=== PATIENT | female | born 1995 | race African-American/Black ===

== ENCOUNTER 2017-05-17 16:37 | Emergency (ER) | payer BC ==
--- NOTE | 2017-05-17 17:02 | PDOC ---
Rapid Medical Evaluation Time Seen by Provider: 05/17/17 17:00 Medical Evaluation: Allergies Allergy/AdvReac Type Severity Reaction Status Date / Time No Known Drug Allergies Allergy Unverified 01/04/13 15:26 05/17/17 17:00 I have performed a brief in person evaluation of this patient. The patient presents with chief complaint of : sent by her PMD for positive HIDA scan . GI: Dr.Maria Rocha Pertinent PE findings: stable non toxic no acute discomfort, no vomiting I have ordered the following: none The patient will proceed to the ER for further evaluation.
[2017-05-17 17:03] VITALS: TEMP 97.8; BMI 27.9
--- NOTE | 2017-05-17 18:11 | PDOC ---
History of Present Illness - General History Source: Patient, Parent(s) Exam Limitations: No Limitations - History of Present Illness Initial Comments: 05/17/17 18:53 The patient is a 21 year old female with a significant PMH of asthma, GERD, and bilateral knee replacements who presents to the emergency department with no complaints after being sent over by Dr. Rocha for evaluation of her gallbladder. The patient reports that she had a HIDA scan, which showed the patient has severe chronic cholecystitis. She reports that Dr. Rocha told her that she has acute gallbladder disease and gallstones and told her to go to the ED to be evaluated. The patient denies any complaints at presentation, but notes that she had some nausea and vomiting a few days ago. The patient denies chest pain, shortness of breath, headache and dizziness. Denies fever, chills, nausea, vomit, diarrhea and constipation. Denies dysuria, frequency, urgency and hematuria. Allergies: NKDA Past surgical history: Bilateral knee replacement. Oral surgeries. Social history: No reported cigarette, alcohol, or drug use. PCP: Dr. Marshall Certified Nurse Operating Room: Dr. Christine Rocha <Piyush Fajardo - Last Filed: 05/17/17 18:52> <Master Palomino - Last Filed: 05/18/17 16:54> - General Chief Complaint: Pain Stated Complaint: PCP SENT Time Seen by Provider: 05/17/17 17:00 Past History <Piyush Fajardo - Last Filed: 05/17/17 18:52> - Past Medical History Anemia: No Asthma: Yes Cancer: No Cardiac Disorders: No CVA: No COPD: No CHF: No DVT: No Dementia: No Diabetes: No GI Disorders: Yes (GB) Disorders: No HTN: No Hypercholesterolemia: No Liver Disease: No Seizures: No Thyroid Disease: No - Surgical History Abdominal Surgery: No Appendectomy: No Cardiac Surgery: No Cholecystectomy: No Lung Surgery: No Neurologic Surgery: No Orthopedic Surgery: Yes (left knee ligament repair) - Suicide/Smoking/Psychosocial Hx Smoking History: Never smoked Hx Alcohol Use: No Drug/Substance Use Hx: No Substance Use Type: None <Master Palomino - Last Filed: 05/18/17 16:54> - Past Medical History Allergies/Adverse Reactions: Allergies Allergy/AdvReac Type Severity Reaction Status Date / Time No Known Drug Allergies Allergy Unverified 05/17/17 17:03 Home Medications: Ambulatory Orders Albuterol Sulfate [Ventolin Hfa] 8 gm IH PRN 01/04/13 Ibuprofen 800 mg PO TID #30 tablet 05/17/17 Omeprazole 20 mg PO DAILY #30 capsule. 05/17/17 Ondansetron [Zofran *Odt*] 4 mg SL TID #30 od.tablet 05/17/17 Review of Systems - Review of Systems Able to Perform ROS?: Yes Comments:: 05/17/17 18:53 GENERAL/CONSTITUTIONAL: No fever or chills. No weakness. HEAD, EYES, EARS, NOSE AND THROAT: No change in vision. No ear pain or discharge. No sore throat. CARDIOVASCULAR: No chest pain or shortness of breath. RESPIRATORY: No cough, wheezing, or hemoptysis. GASTROINTESTINAL: No nausea, vomiting, diarrhea or constipation. GENITOURINARY: No dysuria, frequency, or change in urination. MUSCULOSKELETAL: No joint or muscle swelling or pain. No neck or back pain. SKIN: No rash NEUROLOGIC: No headache, vertigo, loss of consciousness, or change in strength/ sensation. ENDOCRINE: No increased thirst. No abnormal weight change. HEMATOLOGIC/LYMPHATIC: No anemia, easy bleeding, or history of blood clots. ALLERGIC/IMMUNOLOGIC: No hives or skin allergy. <Piyush Fajardo - Last Filed: 05/17/17 18:52> *Physical Exam - Vital Signs Last Vital Signs Temp Pulse Resp BP Pulse Ox 97.8 F 75 20 121/69 100 05/17/17 17:00 05/17/17 17:00 05/17/17 17:00 05/17/17 17:00 05/17/17 17:00 - Physical Exam Comments: 05/17/17 18:54 GENERAL: Awake, alert, and fully oriented, in no acute distress HEAD: No signs of trauma EYES: PERRLA, EOMI, sclera anicteric, conjunctiva clear ENT: Auricles normal inspection, hearing grossly normal, nares patent, oropharynx clear without exudates. Moist mucosa NECK: Normal ROM, supple, no lymphadenopathy, JVD, or masses LUNGS: Breath sounds equal, clear to auscultation bilaterally. No wheezes, and no crackles HEART: Regular rate and rhythm, normal S1 and S2, no murmurs, rubs or gallops ABDOMEN: Soft, nontender, normoactive bowel sounds. No guarding, no rebound. No masses EXTREMITIES: Normal range of motion, no edema. No clubbing or cyanosis. No cords, erythema, or tenderness NEUROLOGICAL: Cranial nerves II through XII grossly intact. Normal speech, normal gait SKIN: Warm, Dry, normal turgor, no rashes or lesions noted. <Piyush Fajardo - Last Filed: 05/17/17 18:52> - Vital Signs Last Vital Signs Temp Pulse Resp BP Pulse Ox 97.8 F 75 20 121/69 100 05/17/17 17:00 05/17/17 17:00 05/17/17 17:00 05/17/17 17:00 05/17/17 17:00 <Master Palomino - Last Filed: 05/18/17 16:54> ED Treatment Course - LABORATORY CBC & Chemistry Diagram: 05/17/17 18:24 05/17/17 18:24 - ADDITIONAL ORDERS Additional order review: Laboratory Results 05/17/17 17:35 Urine HCG, Qual Negative 05/17/17 18:24 RBC 4.33 MCV 86.0 MCHC 32.0 RDW 13.3 MPV 7.7 Neutrophils % 50.9 Lymphocytes % 38.2 Monocytes % 8.9 Eosinophils % 1.6 Basophils % 0.4 <Piyush Fajardo - Last Filed: 05/17/17 18:52> - LABORATORY CBC & Chemistry Diagram: 05/17/17 18:24 05/17/17 18:24 - ADDITIONAL ORDERS Additional order review: Laboratory Results 05/17/17 17:35 Urine HCG, Qual Negative <Master Palomino - Last Filed: 05/18/17 16:54> *DC/Admit/Observation/Transfer - Attestations Scribe Attestion: 05/17/17 18:54 Documentation prepared by Piyush Fajardo, acting as medical sales representative for Master Palomino DO. <Piyush Fajardo - Last Filed: 05/17/17 18:52> - Attestations Physician Attestion: 05/17/17 18:10 I, Dr. Master Palomino, attest that this document has been prepared under my direction and personally reviewed by me in its entirety. I further attest, that it accurately reflects all work, treatment, procedures and medical decision -making performed by me. <Master Palomino - Last Filed: 05/18/17 16:54> Diagnosis at time of Disposition: Cholelithiases Qualifiers: Cholelithiasis location: gallbladder Cholecystitis presence: without cholecystitis Biliary obstruction: without biliary obstruction Qualified Code(s) : K80.20 - Calculus of gallbladder without cholecystitis without obstruction - Discharge Dispostion Disposition: HOME Condition at time of disposition: Stable - Prescriptions Prescriptions: Ibuprofen 800 mg PO TID #30 tablet Omeprazole 20 mg PO DAILY #30 capsule. Ondansetron [Zofran *Odt*] 4 mg SL TID #30 od.tablet - Referrals Referrals: Franco Sal MD [Staff Physician] - Rachel Marshall MD [Primary Care Provider] - - Patient Instructions Printed Discharge Instructions: DI for Gallstones - Post Discharge Activity
[2017-05-17 18:44] LABS: BASO % 0.4 % (0-2.0); EOS % 1.6 % (0-4.5); MCH 27.5 pg (25.7-33.7); MEAN PLT VOLUME 7.7 fl (7.5-11.1); NEUT % 50.9 % (42.8-82.8); PLATELET COUNT 311 K/MM3 (134-434); RDW 13.3 % (11.6-15.6); WHITE BLOOD COUNT 7.8 K/mm3 (4.0-10.0)
[2017-05-17 19:07] LABS: ALBUMIN 3.7 g/dl (3.4-5.0); ALK PHOS 65 U/L (45-117); ANION GAP 7 (8-16); BILIRUBIN,TOTAL 0.4 mg/dL (0.2-1.0); CALCIUM 8.9 mg/dL (8.5-10.1); CO2 25 mmol/L (21-32); CREATININE 0.9 mg/dL (0.55-1.02); GLUCOSE,RANDOM 81 mg/dL (74-106); SGOT/AST 14 U/L (15-37); SGPT/ALT 16 U/L (12-78)
--- NOTE | 2017-05-17 21:00 | PDOC ---
*Physical Exam - Vital Signs Last Vital Signs Temp Pulse Resp BP Pulse Ox 97.8 F 75 20 121/69 100 05/17/17 17:00 05/17/17 17:00 05/17/17 17:00 05/17/17 17:00 05/17/17 17:00 ED Treatment Course - LABORATORY CBC & Chemistry Diagram: 05/17/17 18:24 05/17/17 18:24 - ADDITIONAL ORDERS Additional order review: Laboratory Results 05/17/17 05/17/17 05/17/17 18:24 18:24 18:24 PT with INR Cancelled INR Cancelled Sodium 138 Potassium 4.2 Chloride 106 Carbon Dioxide 25 Anion Gap 7 L BUN 15 Creatinine 0.9 Creat Clearance w eGFR > 60 Random Glucose 81 Calcium 8.9 Total Bilirubin 0.4 AST 14 L ALT 16 Alkaline Phosphatase 65 Total Protein 8.0 Albumin 3.7 Lipase 224 Urine HCG, Qual Blood Type A POSITIVE Antibody Screen Negative 05/17/17 17:35 PT with INR INR Sodium Potassium Chloride Carbon Dioxide Anion Gap BUN Creatinine Creat Clearance w eGFR Random Glucose Calcium Total Bilirubin AST ALT Alkaline Phosphatase Total Protein Albumin Lipase Urine HCG, Qual Negative Blood Type Antibody Screen 05/17/17 18:24 RBC 4.33 MCV 86.0 MCHC 32.0 RDW 13.3 MPV 7.7 Neutrophils % 50.9 Lymphocytes % 38.2 Monocytes % 8.9 Eosinophils % 1.6 Basophils % 0.4 *DC/Admit/Observation/Transfer Diagnosis at time of Disposition: Cholelithiases Qualifiers: Cholelithiasis location: gallbladder Cholecystitis presence: without cholecystitis Biliary obstruction: without biliary obstruction Qualified Code(s) : K80.20 - Calculus of gallbladder without cholecystitis without obstruction - Discharge Dispostion Disposition: HOME Condition at time of disposition: Stable Admit: No - Referrals Referrals: Rachel Marshall MD [Primary Care Provider] - Franco Sal MD [Staff Physician] - - Patient Instructions Printed Discharge Instructions: DI for Gallstones - Post Discharge Activity
[2017-05-17 21:06] VITALS: BP 107/68; PULSE 63
== END 2017-05-17 21:08 | disposition home or self-care (01) ==
LOC: JER 16:37
DX: K80.20 Calculus of gallbladder without cholecystitis without obstruction (principal); J45.909 Unspecified asthma, uncomplicated
CPT/HCPCS: 36415; 76705-TC; 80053; 83690; 84703; 85025; 86850; 86900; 86901; 99283-25

== ENCOUNTER 2017-08-15 10:32 | Day surgery (SDC) | payer BC ==
[2017-08-14 09:32] VITALS: BMI 27.3
[2017-08-15] MEDS ORDERED: BUPIVACAINE HCL/PF 0.5% (5MG/ML) 10 ML VIAL ONE (10:52)
--- NOTE | 2017-08-15 11:55 | HP ---
History & Physical Update - History History: No Change - Physical Physical: No Change Currently as noted:: CTA b/l, no wheezing - Assessment Assessment: No Change - Plan Plan: No Change (complete H&P in chart from 08/02/17, D/r Marcin. No changes to the patient health. Urine preg negative today.)
[2017-08-15] MEDS ORDERED: MIDAZOLAM HCL 2 MG/2 ML SINGLE DOSE VIAL ONE ×2 (12:02)
[2017-08-15] MEDS ORDERED: PROPOFOL 20 ML ONE (12:07)
[2017-08-15] MEDS ORDERED: ROCURONIUM BROMIDE 50 MG/5 ML VIAL ONE (12:08)
[2017-08-15] MEDS ORDERED: ceFAZolin SODIUM 1 GM VIAL IVPB ONE (12:11)
[2017-08-15] MEDS ORDERED: ceFAZolin SODIUM 1 GM VIAL ONE (12:20)
--- NOTE | 2017-08-15 13:37 | OP ---
Operative Note - Note: Operative Date: 08/15/17 Pre-Operative Diagnosis: cholelithiasis/chronic cholecystitis Operation: lap khari Findings: as above Post-Operative Diagnosis: Same as Pre-op Surgeon: Alan Burch Supervisor Landscape: Bonnie Avendano Anesthesiologist/CHEESE GRADER: Paty Rajan MD Anesthesia: General Specimens Removed: gallbladder and contents Estimated Blood Loss (mls): 15
[2017-08-15] MEDS ORDERED: BUPIVACAINE HCL/PF 0.5% (5MG/ML) 10 ML VIAL IJ ONE (13:41)
[2017-08-15] MEDS ORDERED: ONDANSETRON 4 MG/2 ML VIAL IVPUSH PRN (14:01)
[2017-08-15 14:04] VITALS: TEMP 97.7
[2017-08-15] MEDS ORDERED: LACTATED RINGERS SOLUTION 1,000 ML IV SCH (14:15)
[2017-08-15] MEDS ORDERED: ONDANSETRON 4 MG/2 ML VIAL ONE (15:14)
[2017-08-15] MEDS ORDERED: PROMETHAZINE HCL 25 MG/1 ML VIAL ONE (16:29)
[2017-08-15] MEDS ORDERED: oxyCODONE HCL 5 MG TABLET ONE (17:21)
[2017-08-15 19:07] VITALS: BP 122/76; PULSE 76
--- NOTE | 2017-08-16 09:49 | OP ---
DATE OF OPERATION: 08/15/2017 PREOPERATIVE DIAGNOSIS: Cholelithiasis, chronic cholecystitis. POSTOPERATIVE DIAGNOSIS: Cholelithiasis, chronic cholecystitis. PROCEDURE: Laparoscopic cholecystectomy. SURGEON: Alan Burhc MD ELECTRONIC CONSOLE DISPLAY OPERATOR: Bonnie Avendano PA-C ANESTHESIA: General. OPERATIVE FINDINGS: Cholelithiasis and chronic cholecystitis. The rest of the findings were unremarkable. DESCRIPTION OF PROCEDURE: The patient was placed on the operating room table in supine position. After the induction of general anesthesia, the patient's abdomen was prepped with ChloraPrep and draped in sterile fashion. Time-out was taken and then pneumoperitoneum established above the umbilicus using a Veress needle. Once 15 mm of intra-abdominal pressure was obtained, a 5-mm port was placed at the umbilicus. Additional lateral 5-mm ports and a subxiphoid 12-mm port were placed and laparoscopy carried out, and the previously noted findings were observed. The gallbladder was placed on cephalad and lateral traction, and dissection was begun at the neck of the gallbladder where the peritoneum was opened medially and laterally using blunt and sharp dissection and electrocautery. Dissection continued in the triangle of Calot where the cystic duct was identified coursing from the neck of the gallbladder distally to the common bile duct. It was dissected proximally and distally for length. Similarly, the artery was similarly identified and dissected. A critical view of safety was taken, and then the cystic duct divided proximally and distally using Endo Albert after it was clipped twice proximally and distally with large hemoclips. The artery was similarly clipped and divided. Hemostasis was checked for and noted to be good and then the gallbladder was removed from the liver bed in a retrograde fashion using electrocautery. Prior to removal from the edge of the liver, hemostasis was again verified and then the gallbladder removed from the edge of the liver, placed in an EndoCatch, and brought out through the subxiphoid port. Pneumoperitoneum was reestablished, hemostasis verified again, and then the 5-mm lateral and subxiphoid ports were removed under laparoscopic vision without evidence of bleeding from the port sites. The umbilical port was removed and the pneumoperitoneum evacuated. All port sites were infiltrated with 0.5% Marcaine and the skin edges closed with 4-0 Biosyn in a subcuticular and continuous fashion. Steri-Strips and Band-Aid dressings were placed and the procedure terminated at this point and the patient aroused from general anesthesia and transferred to the post anesthesia care unit in stable condition awake and alert. ESTIMATED BLOOD LOSS: 15 mL. REPLACEMENTS: Crystalloid. DRAINS: None. SPECIMENS: Gallbladder and contents to pathology. I, Alan Burch, was physically present in the operating room from the time the patient was placed on the operating room table until she was transferred to the post-anesthesia care unit in my accompaniment. MD JOSE Pillai/[id number]
--- NOTE | 2017-08-16 12:47 | PATH ---
Surgical Pathology Report Patient Name: AMARIS ORTEGA [facility]. Rec. #: [id number] /Age/Gender: 1995 (Age: 21) / F Account: [id number] Location: [facility] SURGICAL Taken: 08/15/2017 Received: 08/15/2017 Reported: 08/16/2017 Physicians: Alan Burch MD Specimen(s) Received GALLBLADDER Clinical History Chronic cholecystitis/cholelithiasis Final Diagnosis GALLBLADDER, LAPAROSCOPIC CHOLECYSTECTOMY: CHRONIC CHOLECYSTITIS AND CHOLELITHIASIS. ONE BENIGN PERIDUCTAL LYMPH NODE (0/1). Electronically Signed Christine Farrell M.D. Gross Description Received in formalin, labeled "gallbladder," is a 11.0 x 2.2 x 2.2 cm. gallbladder with a 0.2 cm. in length portion of cystic duct attached. There is a 0.9 cm greatest dimension pink-kate periductal lymph node present. The outer surface is kate-pink with a focal defect and varies from smooth to shaggy. The lumen contains yellow-green, sludgelike bile as well as abundant yellow, irregular choleliths ranging from 0.1-1.8 cm in greatest dimension. The mucosa is hyperemic with focal erosions. The wall of the gallbladder averages 0.1 cm. in thickness. Machine Straw Hat Presser sections are submitted in one cassette. 08/15/201708/15/2017
== END 2017-08-15 19:05 | disposition home or self-care (01) ==
LOC: JASU-SURG 10:32
PROVIDERS: ATTEND Surgery
PROC: 0FT44ZZ Resection of Gallbladder, Percutaneous Endoscopic Approach (ICD-10-PCS; principal; 2017-08-15 12:00)
DX: K80.10 Calculus of gallbladder with chronic cholecystitis without obstruction (principal)
CPT/HCPCS: 84703; 86850; 86900; 86901; 88304-TC; 94760